=== PATIENT | male | born 1995 | race Two or more races ===

== ENCOUNTER 2019-07-28 13:53 | Emergency (ER) | payer OTHER ==
[2019-07-28 14:05] VITALS: RESP 18
[2019-07-28 15:32] LABS: Amphetamine Screen,Urine Not Detected (NotDetected); Barbiturate Screen,Urine Not Detected (NotDetected); Benzodiazepines Screen,Urine Not Detected (NotDetected); Cocaine Screen,Urine Not Detected (NotDetected); Methadone Screen, Urine Not Detected (NotDetected); Opiate Screen,Urine Not Detected (NotDetected); Oxycodone Screen, Urine Not Detected (NotDetected); Phencyclidine Screen,Urine Not Detected (NotDetected); Tricyclic Antidepressant,Urine Not Detected (NotDetected); Urn Cannabinoid Scrn Not Detected (NotDetected)
--- NOTE | 2019-07-28 16:01 | ED ---
General Adult HPI - General Chief complaint: Psychiatric Symptoms Stated complaint: Mental Health Time Seen by Provider: 07/28/19 14:00 Source: patient, police, RN notes reviewed Mode of arrival: ambulatory Limitations: no limitations, altered mental status - History of Present Illness Initial comments: This is a 21-year-old male that the police brought into the emergency department. They gave me the history that the patient was trying to [place] to [place] with [place] really had no recent to go to [place] other than he was feeling immediately [place] his mother told him that he had no recent ago and the police were called this time. Patient indicated to them that he was hearing voices and seeing things and though he has a history of this this was getting worse lately and they wanted him to come the emergency department. Patient states to me that he does hear voices and the voices were indicating to him that he needs to leave [place] so is trying to go to [place]. Patient has no expiration for white count take his mother with him. Patient also states he occasionally sees things such as bright lights in his bedroom he does know what that's all about. Patient also states she's been looking at the traffic light outside of his window he's noticed that the traffic light is flashing yellow and it's normally not flashing yellow and it's doing it all day long and he says is very particular and bothersome he also was noticed the traffic pattern [place] are not normal and that also has been bothering him lately. Patient denies any suicidal homicidal ideations. Patient denies any physical complaints today. Patient denies any chest pain difficulty breathing first breath. Patient denies any recent fever chills or cough per patient denies abdominal pain patient denies any nausea vomiting diarrhea. Patient denies any recent injury or trauma. - Related Data Home Medications Medication Instructions Recorded Confirmed Divalproex Sodium [Depakote] 1,000 mg PO HS 07/28/19 07/28/19 Paliperidone [Invega] 3 mg PO DAILY 07/28/19 07/28/19 Allergies Allergy/AdvReac Type Severity Reaction Status Date / Time No Known Allergies Allergy Verified 07/28/19 14:41 Review of Systems ROS Statement: Those systems with pertinent positive or pertinent negative responses have been documented in the HPI. ROS Other: All systems not noted in ROS Statement are negative. Past Medical History Past Medical History: No Reported History Past Surgical History: No Surgical Hx Reported Past Psychological History: Bipolar Smoking Status: Never smoker Past Alcohol Use History: None Reported Past Drug Use History: None Reported General Exam - General Exam Comments Initial Comments: GENERAL: Patient is well-developed and well-nourished. Patient is nontoxic and well- hydrated and is in no acute distress. ENT: Neck is soft and supple. No significant lymphadenopathy is noted. Oropharynx is clear. Moist mucous membranes. Neck has full range of motion without eliciting any pain. EYES: The sclera were anicteric and conjunctiva were pink and moist. Extraocular movements were intact and pupils were equal round and reactive to light. Eyelids were unremarkable. PULMONARY: Unlabored respirations. Good breath sounds bilaterally. No audible rales rhonchi or wheezing was noted. CARDIOVASCULAR: There is a regular rate and rhythm without any murmurs gallops or rubs. ABDOMEN: Soft and nontender with normal bowel sounds. No palpable organomegaly was noted. There is no palpable pulsatile mass. SKIN: Skin is clear with no lesions or rashes and otherwise unremarkable. NEUROLOGIC: Patient is alert and oriented x3. Cranial nerves II through XII are grossly intact. Motor and sensory are also intact. Normal speech, volume and content. Symmetrical smile. MUSCULOSKELETAL: Normal extremities with adequate strength and full range of motion. No lower extremity swelling or edema. No calf tenderness. LYMPHATICS: No significant lymphadenopathy is noted PSYCHIATRIC: Patient states he is hearing voices which are telling to leave [place]. Patient also states he is seeing bright lights that aren't really there in his bedroom. Patient denies any suicidal homicidal ideations. Limitations: no limitations, altered mental status Course Vital Signs 07/28/19 14:01 Temperature 98.7 F Pulse Rate 79 Respiratory 18 Rate Blood Pressure 133/88 O2 Sat by Pulse 97 Oximetry Medical Decision Making - Medical Decision Making EPS evaluated the patient and determined the patient was safe go home the brother was in the room and would make sure the patient followed up. - Lab Data Lab Results 07/28/19 Range/Units 14:45 Urine Opiates Screen Not Detected (NotDetected) Ur Oxycodone Screen Not Detected (NotDetected) Urine Methadone Screen Not Detected (NotDetected) Ur Propoxyphene Screen Not Detected (NotDetected) Ur Barbiturates Screen Not Detected (NotDetected) U Tricyclic Antidepress Not Detected (NotDetected) Ur Phencyclidine Scrn Not Detected (NotDetected) Ur Amphetamines Screen Not Detected (NotDetected) U Methamphetamines Scrn Not Detected (NotDetected) U Benzodiazepines Scrn Not Detected (NotDetected) Urine Cocaine Screen Not Detected (NotDetected) U Marijuana (THC) Screen Not Detected (NotDetected) Disposition Clinical Impression: Bipolar disorder Disposition: HOME SELF-CARE Condition: Good Instructions (If sedation given, give patient instructions): Bipolar Disorder (ED) Is patient prescribed a controlled substance at d/c from ED?: No Referrals: None,Stated [Primary Care Provider] - 1-2 days Time of Disposition: 18:27
[2019-07-28 20:27] VITALS: BP 135/65; PULSE 77; TEMP 98.1
== END 2019-07-28 20:25 | disposition home or self-care (01) ==
LOC: EC 13:53
DX: F31.9 Bipolar disorder, unspecified (principal); R44.0 Auditory hallucinations; R44.1 Visual hallucinations; Z79.899 Other long term (current) drug therapy
CPT/HCPCS: 80306; 82075